=== PATIENT | female | born 1975 | race Caucasian/White ===

== ENCOUNTER 2016-11-10 07:43 | Emergency (ER) | payer BC ==
[2016-11-10 07:58] VITALS: BP 134/97
--- NOTE | 2016-11-10 08:23 | UC ---
Throat Pain/Nasal Rell HPI - HPI Summary HPI Summary: sinus pain and pressure x 8 days + nasal congestion, cough , pnd, no fever, no chills - History of Current Complaint Chief Complaint: UCRespiratory Stated Complaint: SINUS COMPLAINT Time Seen by Provider: 11/10/16 08:16 Hx Obtained From: Patient Hx Last Menstrual Period: n/a Onset/Duration: Gradual Onset, Lasting Days - 8, Still Present Severity: Moderate Cough: Productive Associated Signs & Symptoms: Positive: Sinus Discomfort, Nasal Discharge. Negative: Dysphagia, FB Sensation, Drooling, Wheezing, Hoarseness, Fever, Rash - Allergies/Home Medications Allergies/Adverse Reactions: Allergies Allergy/AdvReac Type Severity Reaction Status Date / Time Erythromycin AdvReac Severe GI symptoms Verified 11/10/16 07:58 Home Medications: Home Medications [id number] [Nighttime Cold Flu & Reli 15-6.25-325 mg] 2 cap PO BEDTIME PRN 11/10/16 [History Confirmed 11/10/16] Sinus Med 1 dose PO SEE INSTRUCTIONS PRN 11/10/16 [History Confirmed 11/10/16] glipiZIDE TAB* [Glucotrol TAB*] 5 mg PO BID 11/10/16 [History Confirmed 11/10/16 ] PMH/Surg Hx/FS Hx/Imm Hx Previously Healthy: Yes - Surgical History Surgical History: Yes Surgery Procedure, Year, and Place: 2010. T & A age 19 yo - Family History Known Family History: Negative: Diabetes - Social History Alcohol Use: Rare Substance Use Type: None Smoking Status (MU): Never Smoked Tobacco - Immunization History Most Recent Tetanus Shot: unknown Review of Systems Constitutional: Negative Skin: Negative Eyes: Negative ENT: Sore Throat, Ear Ache, Nasal Discharge Respiratory: Cough Cardiovascular: Negative Gastrointestinal: Negative Genitourinary: Negative Motor: Negative Neurovascular: Negative Musculoskeletal: Negative Neurological: Negative Psychological: Negative All Other Systems Reviewed And Are Negative: Yes Physical Exam Triage Information Reviewed: Yes Appearance: Well-Appearing, No Pain Distress, Well-Nourished Vital Signs: Initial Vital Signs Temp 99.2 F 11/10/16 07:51 Pulse 90 11/10/16 07:51 Resp 20 11/10/16 07:51 BP 134/97 11/10/16 07:51 Pulse Ox 98 08/29/17 07:51 Vital Signs Reviewed: Yes Eyes: Positive: Conjunctiva Clear ENT: Positive: Normal ENT inspection, Hearing grossly normal, Pharynx normal, Nasal congestion, Nasal drainage, TMs normal Neck: Positive: Supple, Nontender, No Lymphadenopathy Respiratory: Positive: Chest non-tender, Lungs clear, Normal breath sounds, No respiratory distress Cardiovascular: Positive: RRR, No Murmur, Pulses Normal Skin Exam: Normal Throat Pain/Nasal Course/Dx - Differential Dx/Diagnosis Provider Diagnoses: Sinusitis Discharge - Discharge Plan Condition: Stable Disposition: HOME Prescriptions: Amoxicillin/Clavulanate TAB* [Augmentin TAB 875*] 875 mg PO BID #20 tab Guaifenesin-Codeine [Cheratussin AC] 10 ml PO Q8H PRN #120 ml MDD 30 ml PRN Reason: Cough Patient Education Materials: Sinusitis (ED) Referrals: Lexie Leggett MD [Primary Care Provider] - 7 Days
== END 2016-11-10 08:30 | disposition home or self-care (01) ==
LOC: UCCORT 07:43
DX: J32.9 Chronic sinusitis, unspecified (principal)
CPT/HCPCS: 99202; G0463